=== PATIENT | male | born 1990 | race Caucasian/White ===

== ENCOUNTER 2017-02-20 14:34 | Emergency (ER) | payer MEDICAID ==
[~2017-02-20] VITALS: Ht 182.9 cm; Wt 113.4 kg
--- NOTE | 2017-02-20 17:07 | NUR ---
Pt placed in hallway, no ER beds available.
[2017-02-20] MEDS: ACETAMINOPHEN 325 MG TABLET PO ONE (17:57)
[2017-02-20] MEDS ORDERED: ACETAMINOPHEN ES 500 MG TABLET ONE (18:13)
--- NOTE | 2017-02-20 18:16 | NUR ---
Patient discharged to home in stable conditon. Written and verbal after care instructions given. Patient verbalizes understanding of instructions.
[2017-02-20 18:17] VITALS: BP 145/80
== END 2017-02-20 18:23 | disposition home or self-care (01) ==
LOC: ER 14:35
DX: I88.9 Nonspecific lymphadenitis, unspecified (principal)
CPT/HCPCS: 99283; A4663